=== PATIENT | male | born 1985 | race African-American/Black ===

== ENCOUNTER 2019-12-14 20:37 | Emergency (ER) | payer SELFPAY ==
--- NOTE | 2019-12-14 20:52 | EDM.PDOC ---
ED HPI GENERAL MEDICAL PROBLEM - General Chief Complaint: General Stated Complaint: MED CLEARANCE Time Seen by Provider: 12/14/19 20:51 Source of Information: Reports: Patient History Limitations: Reports: No Limitations - History of Present Illness INITIAL COMMENTS - FREE TEXT/NARRATIVE: HISTORY AND PHYSICAL: History of present illness: Patient is a 34-year-old male presents to the ED in police custody for medical clearance. Upon introducing myself and asking patient if he had any medical complaints today patient asked me what my name was and continued to argue with the policewoman. I attempted to redirect him without any success. Patient is alert and oriented and speaking clearly in full sentences without breathlessness. Per nursing triage, patient has no medical history and no medical complaints today. Review of systems: As per history of present illness and below otherwise all systems reviewed and negative. Past medical history: As per history of present illness and as reviewed below otherwise noncontributory. Surgical history: As per history of present illness and as reviewed below otherwise noncontributory. Social history: No reported history of drug or alcohol abuse. Family history: As per history of present illness and as reviewed below otherwise noncontributory. Physical exam: General: Patient sitting comfortably in no acute distress and nontoxic appearing. HEENT: Atraumatic, normocephalic. No meningeal signs. Lungs: Patient is speaking clearly without breathlessness and no signs of respiratory distress Skin: patient is shirtless, there are no obvious skin lesions. Extremities: Atraumatic, hands cuff behind back but full ROM of lower extremities. Neuro: Awake, alert, oriented. Exam nonfocal. Notes: Diagnostics: none Therapeutics: none Prescriptions: none Impression: Medical clearance for incarceration Plan: Follow up with primary care provider Return to ED as needed as discussed Definitive disposition and diagnosis as appropriate pending reevaluation and review of above. - Related Data Allergies Allergy/AdvReac Type Severity Reaction Status Date / Time No Known Allergies Allergy Verified 12/14/19 20:52 Home Meds: Home Meds . [No Known Home Meds] 12/14/19 [History] ED ROS GENERAL - Review of Systems Review Of Systems: Comprehensive ROS is negative, except as noted in HPI. ED EXAM, GENERAL - Physical Exam Exam: See Below (see dictation) Course - Vital Signs Last Recorded V/S: Last Vital Signs Temp 97.8 F 12/14/19 20:50 Pulse 90 12/14/19 20:50 Resp 16 12/14/19 20:50 BP 130/82 12/14/19 20:50 Pulse Ox 97 12/14/19 20:50 Departure - Departure Time of Disposition: 20:53 Disposition: Home, Self-Care 01 Condition: Good Clinical Impression: Medical clearance for incarceration - Discharge Information Referrals: PCP,None [Primary Care Provider] - Forms: ED Department Discharge Additional Instructions: The following information is given to patients seen in the emergency department who are being discharged to home. This information is to outline your options for follow-up care. We provide all patients seen in our emergency department with a follow-up referral. The need for follow-up, as well as the timing and circumstances, are variable depending upon the specifics of your emergency department visit. If you don't have a primary care physician on staff, we will provide you with a referral. We always advise you to contact your personal physician following an emergency department visit to inform them of the circumstance of the visit and for follow-up with them and/or the need for any referrals to a consulting specialist. The emergency department will also refer you to a specialist when appropriate. This referral assures that you have the opportunity for follow-up care with a specialist. All of these measure are taken in an effort to provide you with optimal care, which includes your follow-up. Under all circumstances we always encourage you to contact your private physician who remains a resource for coordinating your care. When calling for follow-up care, please make the office aware that this follow-up is from your recent emergency room visit. If for any reason you are refused follow-up, please contact the [facility] at and asked to speak to the emergency department charge nurse. [facility] [id number] [address] [facility] [address] [place] [id number] Follow up with primary care provider Return to ED as needed as discussed Sepsis Event Note - Focused Exam Vital Signs: Vital Signs Temp Pulse Resp BP Pulse Ox 12/14/19 20:50 97.8 F 90 16 130/82 97 Date Exam was Performed: 12/14/19 Time Exam was Performed: 20:54
== END 2019-12-14 21:03 ==
LOC: MW.ED 20:37
DX: Z02.89 Encounter for other administrative examinations (principal)
CPT/HCPCS: 99282; 99283